=== PATIENT | male | born 1970 | race Hispanic/Latino ===

== ENCOUNTER 2018-04-06 18:47 | Emergency (ER) | payer BC ==
[2018-04-06 19:47] LABS: Basophils % (Auto) 0.5 % (0.0-1.8); Eosinophils % (Auto) 0.2 % (0.0-4.3); Lymphocytes # (Auto) 1.1 K/mm3 (1.2-5.4); Lymphocytes % (Auto) 18.1 % (13.4-35.0); Mean Corpuscular HGB Conc 36 % (32-34); Mean Corpuscular Hemoglobin 32 pg (28-32); Mean Corpuscular Volume 89 fl (84-94); Monocytes # (Auto) 0.4 K/mm3 (0.0-0.8); Monocytes % (Auto) 5.7 % (0.0-7.3); Platelet Count 216 K/mm3 (140-440); Red Blood Count 5.12 M/mm3 (3.65-5.03); Red Cell Distribution Width 13.3 % (13.2-15.2)
[2018-04-06 19:52] LABS: Bilirubin,Urine NEG (Negative); Blood,Urine SM (Negative); Color,Urine Yellow (Yellow); Mucus,Urine FEW /HPF
[2018-04-06 19:59] LABS: Hematocrit 47.1 % (35.5-45.6); Hemoglobin 16.6 gm/dl (11.8-15.2)
[2018-04-06 20:03] LABS: BUN/Creatinine Ratio 9; Blood Urea Nitrogen 7 mg/dL (9-20); Calcium 8.9 mg/dL (8.4-10.2); Hemolysis Index 5
[2018-04-06 20:15] LABS: Amphetamine Screen,Urine PRESUMPTIVE NEGATIVE; Benzodiazepines Screen,Urine PRESUMPTIVE NEGATIVE; Cannabinoid Screen,Urine PRESUMPTIVE NEGATIVE; Cocaine Screen,Urine PRESUMPTIVE NEGATIVE; Methadone Screen,Urine PRESUMPTIVE NEGATIVE; Opiate Screen,Urine PRESUMPTIVE NEGATIVE
[2018-04-06] MEDS ORDERED: ATIVAN IV PRN (20:37)
[2018-04-06] MEDS ORDERED: VITAMIN B-1 100 MG, FOLVITE 1 MG, INFUVITE 10 ML in NACL 0.9% 1000 ML 1,000 ML IV ONE (20:38)
[2018-04-06] MEDS ORDERED: NACL 0.9% 1000 ML 1,000 ML ONE (21:23)
--- NOTE | 2018-04-06 21:49 | Emergency Department Report ---
ED Alcohol HPI - General Chief Complaint: Medical Clearance Stated Complaint: MEDICAL CLEARANCE Time Seen by Provider: 04/06/18 20:36 Source: patient Mode of arrival: Ambulatory Limitations: No Limitations - History of Present Illness Initial Comments: 48-year-old male with a past medical history hypertension and alcohol abuse presents to the hospital requesting alcohol detox. Patient states he was accepted at [facility] [employer] [place] however, he was sent to the ER for medical clearance. Patient states he drinks about 12 pack of beer daily. Menstrual was this a.m. He does develop anxiety and tremors does not drink. Denies history of alcohol withdrawal seizures. No pain currently. - Related Data Allergies Allergy/AdvReac Type Severity Reaction Status Date / Time No Known Allergies Allergy Unverified 04/06/18 19:07 ED Review of Systems ROS: Stated complaint: MEDICAL CLEARANCE Other details as noted in HPI ED Past Medical Hx - Past Medical History Hx Hypertension: Yes Hx Psychiatric Treatment: Yes (alcohol abuse) - Surgical History Past Surgical History?: Yes Additional Surgical History: left femur fx - Social History Smoking Status: Never Smoker Substance Use Type: Alcohol ED Physical Exam - General Limitations: No Limitations ED Course Vital Signs 04/06/18 04/06/18 04/06/18 19:03 19:34 21:13 Temperature 99.3 F Pulse Rate 112 H 120 H 100 H Respiratory 16 16 21 Rate Blood Pressure 113/74 Blood Pressure 129/85 [Right] O2 Sat by Pulse 95 99 93 Oximetry 04/06/18 04/06/18 04/06/18 21:15 21:30 21:45 Temperature Pulse Rate 99 H 94 H 91 H Respiratory 18 19 21 Rate Blood Pressure 122/83 117/75 117/75 Blood Pressure [Right] O2 Sat by Pulse 94 92 93 Oximetry 04/06/18 04/06/18 04/06/18 22:00 22:15 22:30 Temperature Pulse Rate 93 H 97 H 102 H Respiratory 20 12 13 Rate Blood Pressure 120/75 120/75 119/75 Blood Pressure [Right] O2 Sat by Pulse 93 94 95 Oximetry 04/06/18 04/06/18 22:45 23:00 Temperature Pulse Rate 94 H 89 Respiratory 22 22 Rate Blood Pressure 119/75 114/70 Blood Pressure [Right] O2 Sat by Pulse 92 92 Oximetry - Consultations Consultation #1: 04/06/18 21:48 Mental health consultated. They contacted [facility] (formerly [facility] Patient does have a bed there however, he needs alcohol level less than 0.15 for medical clearance ED Medical Decision Making - Lab Data Result diagrams: 04/06/18 19:17 04/06/18 19:17 Lab Results 04/06/18 04/06/18 04/06/18 Range/Units 19:17 19:17 19:17 WBC (4.5-11.0) K/mm3 RBC (3.65-5.03) M/mm3 Hgb (11.8-15.2) gm/dl Hct (35.5-45.6) % MCV (84-94) fl MCH (28-32) pg MCHC (32-34) % RDW (13.2-15.2) % Plt Count (140-440) K/mm3 Lymph % (Auto) (13.4-35.0) % Upson % (Auto) (0.0-7.3) % Eos % (Auto) (0.0-4.3) % Baso % (Auto) (0.0-1.8) % Lymph # (1.2-5.4) K/mm3 Upson # (0.0-0.8) K/mm3 Eos # (0.0-0.4) K/mm3 Baso # (0.0-0.1) K/mm3 Seg Neutrophils % (40.0-70.0) % Seg Neutrophils # (1.8-7.7) K/mm3 Sodium 136 L (137-145) mmol/L Potassium 4.1 (3.6-5.0) mmol/L Chloride 95.1 L (98-107) mmol/L Carbon Dioxide 22 (22-30) mmol/L Anion Gap 23 mmol/L BUN 7 L (9-20) mg/dL Creatinine 0.8 (0.8-1.5) mg/dL Estimated GFR > 60 ml/min BUN/Creatinine Ratio 9 % Glucose 212 H (75-100) mg/dL Calcium 8.9 (8.4-10.2) mg/dL Magnesium (1.7-2.3) mg/dL Urine Color (Yellow) Urine Turbidity (Clear) Urine pH (5.0-7.0) Ur Specific [place] (1.003-1.030) Urine Protein (Negative) mg/dL Urine Glucose (UA) (Negative) mg/dL Urine Ketones (Negative) mg/dL Urine Blood (Negative) Urine Nitrite (Negative) Urine Bilirubin (Negative) Urine Urobilinogen (<2.0) mg/dL Ur Leukocyte Esterase (Negative) Urine WBC (Auto) (0.0-6.0) /HPF Urine RBC (Auto) (0.0-6.0) /HPF Urine Mucus /HPF Salicylates < 0.3 L (2.8-20.0) mg/dL Urine Opiates Screen Urine Methadone Screen Acetaminophen < 5.0 L (10.0-30.0) ug/mL Ur Barbiturates Screen Ur Phencyclidine Scrn Ur Amphetamines Screen U Benzodiazepines Scrn Urine Cocaine Screen U Marijuana (THC) Screen Drugs of Abuse Note Plasma/Serum Alcohol (0-0.07) % 04/06/18 04/06/18 04/06/18 Range/Units 19:17 19:17 21:41 WBC 6.3 (4.5-11.0) K/mm3 RBC 5.12 H (3.65-5.03) M/mm3 Hgb 16.6 H (11.8-15.2) gm/dl Hct 47.1 H (35.5-45.6) % MCV 89 (84-94) fl MCH 32 (28-32) pg MCHC 36 H (32-34) % RDW 13.3 (13.2-15.2) % Plt Count 216 (140-440) K/mm3 Lymph % (Auto) 18.1 (13.4-35.0) % Upson % (Auto) 5.7 (0.0-7.3) % Eos % (Auto) 0.2 (0.0-4.3) % Baso % (Auto) 0.5 (0.0-1.8) % Lymph # 1.1 L (1.2-5.4) K/mm3 Upson # 0.4 (0.0-0.8) K/mm3 Eos # 0.0 (0.0-0.4) K/mm3 Baso # 0.0 (0.0-0.1) K/mm3 Seg Neutrophils % 75.5 H (40.0-70.0) % Seg Neutrophils # 4.8 (1.8-7.7) K/mm3 Sodium (137-145) mmol/L Potassium (3.6-5.0) mmol/L Chloride (98-107) mmol/L Carbon Dioxide (22-30) mmol/L Anion Gap mmol/L BUN (9-20) mg/dL Creatinine (0.8-1.5) mg/dL Estimated GFR ml/min BUN/Creatinine Ratio % Glucose (75-100) mg/dL Calcium (8.4-10.2) mg/dL Magnesium 2.10 (1.7-2.3) mg/dL Urine Color (Yellow) Urine Turbidity (Clear) Urine pH (5.0-7.0) Ur Specific [place] (1.003-1.030) Urine Protein (Negative) mg/dL Urine Glucose (UA) (Negative) mg/dL Urine Ketones (Negative) mg/dL Urine Blood (Negative) Urine Nitrite (Negative) Urine Bilirubin (Negative) Urine Urobilinogen (<2.0) mg/dL Ur Leukocyte Esterase (Negative) Urine WBC (Auto) (0.0-6.0) /HPF Urine RBC (Auto) (0.0-6.0) /HPF Urine Mucus /HPF Salicylates (2.8-20.0) mg/dL Urine Opiates Screen Urine Methadone Screen Acetaminophen (10.0-30.0) ug/mL Ur Barbiturates Screen Ur Phencyclidine Scrn Ur Amphetamines Screen U Benzodiazepines Scrn Urine Cocaine Screen U Marijuana (THC) Screen Drugs of Abuse Note Plasma/Serum Alcohol 0.24 H (0-0.07) % 04/06/18 04/06/18 04/07/18 Range/Units Unknown Unknown 00:07 WBC (4.5-11.0) K/mm3 RBC (3.65-5.03) M/mm3 Hgb (11.8-15.2) gm/dl Hct (35.5-45.6) % MCV (84-94) fl MCH (28-32) pg MCHC (32-34) % RDW (13.2-15.2) % Plt Count (140-440) K/mm3 Lymph % (Auto) (13.4-35.0) % Upson % (Auto) (0.0-7.3) % Eos % (Auto) (0.0-4.3) % Baso % (Auto) (0.0-1.8) % Lymph # (1.2-5.4) K/mm3 [place] # (0.0-0.8) K/mm3 Eos # (0.0-0.4) K/mm3 Baso # (0.0-0.1) K/mm3 Seg Neutrophils % (40.0-70.0) % Seg Neutrophils # (1.8-7.7) K/mm3 Sodium (137-145) mmol/L Potassium (3.6-5.0) mmol/L Chloride (98-107) mmol/L Carbon Dioxide (22-30) mmol/L Anion Gap mmol/L BUN (9-20) mg/dL Creatinine (0.8-1.5) mg/dL Estimated GFR ml/min BUN/Creatinine Ratio % Glucose (75-100) mg/dL Calcium (8.4-10.2) mg/dL Magnesium (1.7-2.3) mg/dL Urine Color Yellow (Yellow) Urine Turbidity Clear (Clear) Urine pH 6.0 (5.0-7.0) Ur Specific [place] 1.009 (1.003-1.030) Urine Protein 30 mg/dl (Negative) mg/dL Urine Glucose (UA) Neg (Negative) mg/dL Urine Ketones Tr (Negative) mg/dL Urine Blood Sm (Negative) Urine Nitrite Neg (Negative) Urine Bilirubin Neg (Negative) Urine Urobilinogen 2.0 (<2.0) mg/dL Ur Leukocyte Esterase Neg (Negative) Urine WBC (Auto) 1.0 (0.0-6.0) /HPF Urine RBC (Auto) 3.0 (0.0-6.0) /HPF Urine Mucus Few /HPF Salicylates (2.8-20.0) mg/dL Urine Opiates Screen Presumptive negative Urine Methadone Screen Presumptive negative Acetaminophen (10.0-30.0) ug/mL Ur Barbiturates Screen Presumptive negative Ur Phencyclidine Scrn Presumptive negative Ur Amphetamines Screen Presumptive negative U Benzodiazepines Scrn Presumptive negative Urine Cocaine Screen Presumptive negative U Marijuana (THC) Screen Presumptive negative Drugs of Abuse Note Disclamer Plasma/Serum Alcohol 0.12 H (0-0.07) % - Medical Decision Making alcohol detox request etoh less than 0.15 prior to clearance hr improved with NS, banana bag, and ativan no tremors after treatment medically cleared for psychiatric transfer to [facility] - Differential Diagnosis alcohol detox, alcohol abuse, alcohol intoxication, electrolyte abnormaliti Critical Care Time: No Critical care attestation.: If time is entered above; I have spent that time in minutes in the direct care of this critically ill patient, excluding procedure time. ED Disposition Clinical Impression: Alcohol abuse, Alcohol dependence, Medical clearance for psychiatric admission Disposition: DC/TX-65 PSY HOSP/PSY UNIT Is pt being admited?: No Condition: Stable Time of Disposition: 00:52 (awaiting transfer)
[2018-04-06] MEDS: ATIVAN IV PRN (22:04)
[2018-04-06] MEDS ORDERED: NACL 0.9% 1000 ML 1,000 ML IV ONE (23:04)
[2018-04-07] MEDS: ATIVAN IV PRN (04:37)
[2018-04-07 04:42] VITALS: BP 150/93
== END 2018-04-07 05:00 ==
LOC: ED 18:47
DX: F10.229 Alcohol dependence with intoxication, unspecified (principal); Z04.6 Encounter for general psychiatric examination, requested by authority; I10 Essential (primary) hypertension
CPT/HCPCS: 36415; 80048; 80307; 81001; 83735; 85025; 96365; 96375; 99285; G0480; J2060; J3411; J7030; 80320

== ENCOUNTER 2019-02-01 14:56 | Emergency (ER) | payer BC ==
[2019-02-01 15:55] LABS: Basophils % (Auto) 0.4 % (0.0-1.8); Eosinophils % (Auto) 0.1 % (0.0-4.3); Lymphocytes % (Auto) 8.2 % (13.4-35.0); Mean Corpuscular HGB Conc 36 % (32-34); Mean Corpuscular Volume 87 fl (84-94); Monocytes # (Auto) 0.8 K/mm3 (0.0-0.8); Monocytes % (Auto) 6.4 % (0.0-7.3); Platelet Count 208 K/mm3 (140-440); Red Blood Count 5.79 M/mm3 (3.65-5.03); Red Cell Distribution Width 14.6 % (13.2-15.2)
[2019-02-01 16:01] LABS: Hematocrit 50.4 % (35.5-45.6); Hemoglobin 17.9 gm/dl (11.8-15.2)
[2019-02-01 16:22] LABS: Alanine Aminotransferase 38 units/L (7-56); BUN/Creatinine Ratio 11; Blood Urea Nitrogen 8 mg/dL (9-20); Calcium 9.3 mg/dL (8.4-10.2); Hemolysis Index 13
[2019-02-01] MEDS ORDERED: NACL 0.9% 1000 ML 1,000 ML IV ONE (16:38)
[2019-02-01] MEDS ORDERED: ZOFRAN IV ONE (16:38)
[2019-02-01] MEDS ORDERED: PEPCID IV ONE (16:38)
[2019-02-01] MEDS ORDERED: VALIUM IV ONE (17:00)
[2019-02-01] MEDS ORDERED: VITAMIN B-1 100 MG, FOLVITE 1 MG, INFUVITE 10 ML in NACL 0.9% 1000 ML 1,000 ML IV ONE (17:00)
[2019-02-01] MEDS ORDERED: ATIVAN PO ONE (20:04)
[2019-02-01 21:17] LABS: Amphetamine Screen,Urine PRESUMPTIVE NEGATIVE; Benzodiazepines Screen,Urine PRESUMPTIVE NEGATIVE; Cocaine Screen,Urine PRESUMPTIVE NEGATIVE; Methadone Screen,Urine PRESUMPTIVE NEGATIVE; Opiate Screen,Urine PRESUMPTIVE NEGATIVE
[2019-02-01 21:44] LABS: Cannabinoid Screen,Urine PRESUMPTIVE POSITIVE
--- NOTE | 2019-02-01 22:17 | Emergency Department Report ---
ED Psych HPI - General Chief Complaint: Alcohol Stated Complaint: ALCOHOL WITHDRAWAL Time Seen by Provider: 02/01/19 16:21 Source: patient, EMS Mode of arrival: Ambulatory - History of Present Illness Initial Comments: Patient is a 48-year-old male who is presenting with possible alcohol withdrawal. Patient states that his last drink was yesterday. Patient is drinking for last several days. The patient like help with alcohol. Patient states he does have some tremors and some mild nausea. He is not having any hallucinations vomiting fevers chills diarrhea chest pain or shortness of breath. - Related Data Home Medications Medication Instructions Recorded Confirmed Last Taken Metoprolol [Lopressor TAB] 50 mg PO BID 02/01/19 02/01/19 Unknown Allergies Allergy/AdvReac Type Severity Reaction Status Date / Time No Known Allergies Allergy Unverified 04/06/18 19:07 ED Review of Systems ROS: Stated complaint: ALCOHOL WITHDRAWAL Other details as noted in HPI Comment: All other systems reviewed and negative ED Past Medical Hx - Past Medical History Hx Hypertension: Yes Hx Psychiatric Treatment: Yes (alcohol abuse) - Surgical History Additional Surgical History: left femur fx - Social History Smoking Status: Unknown if ever smoked - Medications Home Medications: Home Medications Medication Instructions Recorded Confirmed Last Taken Type Metoprolol [Lopressor TAB] 50 mg PO BID 02/01/19 02/01/19 Unknown History ED Physical Exam - General Limitations: No Limitations General appearance: alert, in no apparent distress - Head Head exam: Present: atraumatic, normocephalic - Eye Eye exam: Present: normal appearance - ENT ENT exam: Present: mucous membranes moist - Neck Neck exam: Present: normal inspection - Respiratory Respiratory exam: Present: normal lung sounds bilaterally. Absent: respiratory distress, wheezes, rales, rhonchi - Cardiovascular Cardiovascular Exam: Present: regular rate, normal rhythm. Absent: systolic murmur, diastolic murmur, rubs, gallop - GI/Abdominal GI/Abdominal exam: Present: soft, normal bowel sounds. Absent: distended, tenderness, guarding, rebound, rigid - Rectal Rectal exam: Present: deferred - Extremities Exam Extremities exam: Present: normal inspection - Back Exam Back exam: Present: normal inspection - Neurological Exam Neurological exam: Present: alert, oriented X3 - Psychiatric Psychiatric exam: Present: normal affect, normal mood - Skin Skin exam: Present: warm, dry, intact, normal color. Absent: rash ED Course Vital Signs 02/01/19 02/01/19 02/01/19 15:11 15:23 15:30 Temperature 97.4 F L Pulse Rate 88 86 83 Respiratory 16 16 17 Rate Blood Pressure 150/102 136/98 O2 Sat by Pulse 98 95 96 Oximetry 02/01/19 02/01/19 02/01/19 16:00 16:04 16:30 Temperature Pulse Rate 83 Respiratory 14 18 Rate Blood Pressure 135/96 124/73 O2 Sat by Pulse 96 93 Oximetry 02/01/19 02/01/19 02/01/19 17:00 17:30 18:00 Temperature Pulse Rate 83 83 Respiratory 11 L 15 Rate Blood Pressure 148/97 143/81 150/100 O2 Sat by Pulse Oximetry 02/01/19 02/01/19 02/01/19 18:30 19:00 19:31 Temperature Pulse Rate 85 94 H 89 Respiratory 16 19 15 Rate Blood Pressure 162/102 158/127 173/105 O2 Sat by Pulse Oximetry 02/01/19 02/01/19 20:01 20:10 Temperature Pulse Rate 78 Respiratory 17 17 Rate Blood Pressure 147/82 O2 Sat by Pulse 93 Oximetry ED Medical Decision Making - Lab Data Result diagrams: 02/01/19 15:30 02/01/19 15:30 Lab Results 02/01/19 02/01/19 02/01/19 Range/Units 15:30 15:30 16:48 WBC 11.8 H (4.5-11.0) K/mm3 RBC 5.79 H (3.65-5.03) M/mm3 Hgb 17.9 H (11.8-15.2) gm/dl Hct 50.4 H (35.5-45.6) % MCV 87 (84-94) fl MCH 31 (28-32) pg MCHC 36 H (32-34) % RDW 14.6 (13.2-15.2) % Plt Count 208 (140-440) K/mm3 Lymph % (Auto) 8.2 L (13.4-35.0) % [place] % (Auto) 6.4 (0.0-7.3) % Eos % (Auto) 0.1 (0.0-4.3) % Baso % (Auto) 0.4 (0.0-1.8) % Lymph # 1.0 L (1.2-5.4) K/mm3 [place] # 0.8 (0.0-0.8) K/mm3 Eos # 0.0 (0.0-0.4) K/mm3 Baso # 0.0 (0.0-0.1) K/mm3 Seg Neutrophils % 84.9 H (40.0-70.0) % Seg Neutrophils # 10.0 H (1.8-7.7) K/mm3 Sodium 138 (137-145) mmol/L Potassium 4.3 (3.6-5.0) mmol/L Chloride 95.9 L (98-107) mmol/L Carbon Dioxide 19 L (22-30) mmol/L Anion Gap 27 mmol/L BUN 8 L (9-20) mg/dL Creatinine 0.7 L (0.8-1.5) mg/dL Estimated GFR > 60 ml/min BUN/Creatinine Ratio 11 % Glucose 106 H (75-100) mg/dL Calcium 9.3 (8.4-10.2) mg/dL Total Bilirubin 1.30 H (0.1-1.2) mg/dL AST 76 H (5-40) units/L ALT 38 (7-56) units/L Alkaline Phosphatase 75 (35-129) units/L Total Protein 8.4 H (6.3-8.2) g/dL Albumin 5.0 (3.9-5) g/dL Albumin/Globulin Ratio 1.5 % Urine Opiates Screen Urine Methadone Screen Ur Barbiturates Screen Ur Phencyclidine Scrn Ur Amphetamines Screen U Benzodiazepines Scrn Urine Cocaine Screen U Marijuana (THC) Screen Drugs of Abuse Note Plasma/Serum Alcohol 0.11 H (0-0.07) % 02/01/19 Range/Units 20:30 WBC (4.5-11.0) K/mm3 RBC (3.65-5.03) M/mm3 Hgb (11.8-15.2) gm/dl Hct (35.5-45.6) % MCV (84-94) fl MCH (28-32) pg MCHC (32-34) % RDW (13.2-15.2) % Plt Count (140-440) K/mm3 Lymph % (Auto) (13.4-35.0) % [place] % (Auto) (0.0-7.3) % Eos % (Auto) (0.0-4.3) % Baso % (Auto) (0.0-1.8) % Lymph # (1.2-5.4) K/mm3 [place] # (0.0-0.8) K/mm3 Eos # (0.0-0.4) K/mm3 Baso # (0.0-0.1) K/mm3 Seg Neutrophils % (40.0-70.0) % Seg Neutrophils # (1.8-7.7) K/mm3 Sodium (137-145) mmol/L Potassium (3.6-5.0) mmol/L Chloride (98-107) mmol/L Carbon Dioxide (22-30) mmol/L Anion Gap mmol/L BUN (9-20) mg/dL Creatinine (0.8-1.5) mg/dL Estimated GFR ml/min BUN/Creatinine Ratio % Glucose (75-100) mg/dL Calcium (8.4-10.2) mg/dL Total Bilirubin (0.1-1.2) mg/dL AST (5-40) units/L ALT (7-56) units/L Alkaline Phosphatase (35-129) units/L Total Protein (6.3-8.2) g/dL Albumin (3.9-5) g/dL Albumin/Globulin Ratio % Urine Opiates Screen Presumptive negative Urine Methadone Screen Presumptive negative Ur Barbiturates Screen Presumptive negative Ur Phencyclidine Scrn Presumptive negative Ur Amphetamines Screen Presumptive negative U Benzodiazepines Scrn Presumptive negative Urine Cocaine Screen Presumptive negative U Marijuana (THC) Screen Presumptive positive Drugs of Abuse Note Disclamer Plasma/Serum Alcohol (0-0.07) % - Medical Decision Making She was given medications for symptomatic relief. Patient likely did not have his last drink greater than 24 hours ago since he still has significant amount of alcohol in his system. Patient was seen by a mental health colleagues who are trying to arrange alcohol detox programs for the patient. Patient is medically cleared at this time. Critical care attestation.: If time is entered above; I have spent that time in minutes in the direct care of this critically ill patient, excluding procedure time. ED Disposition Clinical Impression: Alcohol abuse Disposition: DC/TX-65 PSY HOSP/PSY UNIT Is pt being admited?: No Does the pt Need Aspirin: No Condition: Stable Referrals: MONICA MARIA MD [Primary Care Provider] - 3-5 Days Time of Disposition: 22:17
[2019-02-02 12:07] VITALS: BP 137/85
== END 2019-02-02 12:07 | disposition home or self-care (01) ==
LOC: ED 14:56
DX: F10.120 Alcohol abuse with intoxication, uncomplicated (principal); I10 Essential (primary) hypertension
CPT/HCPCS: 36415; 80053; 80307; 85025; 93005; 93010; 96365; 96366; 96375; 99284; G0480; J2405; J3360; J3411; J7030; 80320

== ENCOUNTER 2019-11-26 00:44 | Emergency (ER) | payer BC ==
[2019-11-26] MEDS ORDERED: SODIUM CHLORIDE 0.9% 1000 ML 1,000 ML IV ONE (00:59)
[2019-11-26] MEDS ORDERED: THIAMINE 100 MG, FOLIC ACID 1 MG, MULTIPLE VITAMIN INJ, ADULT 10 ML in SODIUM CHLORIDE ... IV ONE (00:59)
--- NOTE | 2019-11-26 01:02 | Emergency Department Report ---
<JODIE DAVIS - Last Filed: 11/26/19 11:50> ED Alcohol HPI - General Chief Complaint: Alcohol Stated Complaint: ALCOHOL POISONING Time Seen by Provider: 11/26/19 00:59 - Related Data Home Medications Medication Instructions Recorded Confirmed Last Taken Metoprolol [Lopressor TAB] 50 mg PO BID 02/01/19 02/01/19 Unknown Previous Rx's Medication Instructions Recorded Last Taken Type Omeprazole 20 mg PO QDAY #30 capsule. 02/02/19 Unknown Rx Allergies Allergy/AdvReac Type Severity Reaction Status Date / Time No Known Allergies Allergy Unverified 04/06/18 19:07 ED Past Medical Hx - Medications Home Medications: Home Medications Medication Instructions Recorded Confirmed Last Taken Type Metoprolol [Lopressor TAB] 50 mg PO BID 02/01/19 02/01/19 Unknown History Omeprazole 20 mg PO QDAY #30 capsule. 02/02/19 Unknown Rx ED Course - Reevaluation(s) Reevaluation #2: 11/26/19 11:51 10am etoh level still hi. cannot assess patient until alcohol level is released .100. Pt did receive p.o. potassium 1 mg several hours ago for "anxiety". CIWA score was 7 at the time. Patient is on a CIWA protocol to monitor for withdrawal while waiting for sobriety. It is taking about 6 hours for patient to metabolize 0.1 of alcohol therefore repeat will be ordered for 4pm ED Medical Decision Making - Lab Data Result diagrams: 11/26/19 01:17 11/26/19 01:17 ED Disposition Clinical Impression: Desire for detoxification Acute alcohol intoxication Qualifiers: Complication of substance-induced condition: uncomplicated Qualified Code(s): F10.920 - Alcohol use, unspecified with intoxication, uncomplicated Disposition: DC/TX-70 ANOTHER TYPE HLTHCARE Condition: Stable Referrals: PRIMARY CARE, [Primary Care Provider] - 2-3 Days <LENORA LIN - Last Filed: 11/26/19 15:30> ED Medical Decision Making - Lab Data Result diagrams: 11/26/19 01:17 11/26/19 01:17 - Medical Decision Making I have placed patient on involuntary hold using 2013 form. His alcohol use has become incapacitating. He has been accepted to [facility] for inpatient rehabilitation. <NEYMAR NEW III - Last Filed: 11/26/19 22:28> ED Alcohol HPI - General Source: family Mode of arrival: Ambulatory Limitations: No Limitations - History of Present Illness Initial Comments: Patient is a 49-year-old male that presents emergency room with complaints of alcoholism and wanting rehab. Patient states that he has been drinking for the past 2 weeks. Patient states he drinks too much. Patient states his last check was 30 minutes prior to arrival. Patient denies seizures. Patient denies shaking. Patient denies anxiety at this time. Patient states he wants to go to rehab and he will go directly from the ER if we can get that set up. MD Complaint: alcohol intoxication, alcohol dependence, desires rehab Last Drink: just GENERAL MANAGER Time Since Last Drink: 30 -: minute(s) Chronic Alcohol Use: Yes Previous Visits for Alcohol Intoxication?: Yes Recent Trauma: No Associated Symptoms: denies other symptoms Treatments Prior to Arrival: none ED Review of Systems ROS: Stated complaint: ALCOHOL POISONING Other details as noted in HPI Constitutional: denies: chills, fever Eyes: denies: eye pain, eye discharge, vision change ENT: denies: ear pain, throat pain Respiratory: denies: cough, shortness of breath, wheezing Cardiovascular: denies: chest pain, palpitations Endocrine: no symptoms reported Gastrointestinal: denies: abdominal pain, nausea, diarrhea Genitourinary: denies: urgency, dysuria Musculoskeletal: denies: back pain, joint swelling, arthralgia Skin: denies: rash, lesions Neurological: denies: headache, weakness, paresthesias Psychiatric: denies: anxiety, depression Hematological/Lymphatic: denies: easy bleeding, easy bruising ED Past Medical Hx - Past Medical History Previous Medical History?: Yes Hx Hypertension: Yes Hx Psychiatric Treatment: Yes (alcohol abuse) - Surgical History Past Surgical History?: Yes Additional Surgical History: left femur fx - Family History Family history: no significant - Social History Smoking Status: Never Smoker Substance Use Type: Alcohol ED Physical Exam - General Limitations: No Limitations General appearance: alert, in no apparent distress - Head Head exam: Present: atraumatic, normocephalic - Eye Eye exam: Present: normal appearance - ENT ENT exam: Present: mucous membranes moist - Neck Neck exam: Present: normal inspection - Respiratory Respiratory exam: Present: normal lung sounds bilaterally. Absent: respiratory distress - Cardiovascular Cardiovascular Exam: Present: regular rate, normal rhythm. Absent: systolic murmur, diastolic murmur, rubs, gallop - GI/Abdominal GI/Abdominal exam: Present: soft, normal bowel sounds - Rectal Rectal exam: Present: deferred - Extremities Exam Extremities exam: Present: normal inspection - Back Exam Back exam: Present: normal inspection - Neurological Exam Neurological exam: Present: alert, oriented X3 - Psychiatric Psychiatric exam: Present: normal affect, normal mood - Skin Skin exam: Present: warm, dry, intact, normal color. Absent: rash ED Course Vital Signs 11/26/19 11/26/19 11/26/19 00:47 07:35 08:00 Temperature 987.1 F H 97.9 F Pulse Rate 114 H 93 H Respiratory 18 16 16 Rate Blood Pressure 143/107 Blood Pressure 147/92 [Right] O2 Sat by Pulse 94 95 95 Oximetry 11/26/19 11/26/19 11/26/19 08:30 08:48 09:00 Temperature Pulse Rate 77 98 H 83 Respiratory 12 16 22 Rate Blood Pressure 147/92 137/83 Blood Pressure 137/83 [Right] O2 Sat by Pulse 93 95 96 Oximetry 11/26/19 11/26/19 11/26/19 09:16 09:30 09:46 Temperature Pulse Rate 79 73 75 Respiratory 14 12 14 Rate Blood Pressure 137/83 153/99 153/99 Blood Pressure [Right] O2 Sat by Pulse 92 93 95 Oximetry 11/26/19 11/26/19 11/26/19 10:00 10:16 10:30 Temperature Pulse Rate 75 107 H 75 Respiratory 10 L 17 13 Rate Blood Pressure 134/77 134/77 143/94 Blood Pressure [Right] O2 Sat by Pulse 93 96 90 Oximetry 11/26/19 11/26/19 11/26/19 10:46 11:00 11:16 Temperature Pulse Rate 83 74 78 Respiratory 14 12 13 Rate Blood Pressure 143/94 150/94 150/94 Blood Pressure [Right] O2 Sat by Pulse 95 96 97 Oximetry 11/26/19 11/26/19 11/26/19 11:30 11:46 12:00 Temperature Pulse Rate 83 73 74 Respiratory 13 14 15 Rate Blood Pressure 145/108 145/108 137/103 Blood Pressure [Right] O2 Sat by Pulse 95 98 96 Oximetry 11/26/19 11/26/19 11/26/19 12:30 13:00 13:30 Temperature Pulse Rate 76 81 77 Respiratory 15 12 13 Rate Blood Pressure 147/96 143/82 151/86 Blood Pressure [Right] O2 Sat by Pulse 95 96 98 Oximetry 11/26/19 11/26/19 11/26/19 14:00 14:30 15:00 Temperature Pulse Rate 111 H 77 85 Respiratory 17 15 12 Rate Blood Pressure 145/93 160/86 160/86 Blood Pressure [Right] O2 Sat by Pulse 97 100 94 Oximetry 11/26/19 16:00 Temperature Pulse Rate Respiratory Rate Blood Pressure 145/98 Blood Pressure [Right] O2 Sat by Pulse 90 Oximetry - Reevaluation(s) Reevaluation #1: I discussed all results and clinical findings with patient. I discussed plan of care with patient. Patient agrees with plan of care. Patient will remain in the ER until he is medically and clinically sober. Patient states he wants to have detox. A mental health evaluation has been placed for possible placement to detox. 11/26/19 05:12 ED Medical Decision Making - Lab Data Result diagrams: 11/26/19 01:17 11/26/19 01:17 - Medical Decision Making Patient is a 49-year-old male that presents emergency room with acute alcohol intoxication and desiring detox. Patient had a medical clearance done. Patient's labs are unremarkable except for elevated alcohol level. Patient will remain in the ER until he is clinically and legally sober or accepted to a rehab facility. Patient was signed out at 0 600 to the oncoming physician, Dr. Davis. - Differential Diagnosis Alcohol intoxication, alcohol abuse, desire detox. Critical care attestation.: If time is entered above; I have spent that time in minutes in the direct care of this critically ill patient, excluding procedure time. ED Disposition Is pt being admited?: No Does the pt Need Aspirin: No Time of Disposition: 22:28
[2019-11-26 01:35] LABS: Basophils % (Auto) 0.8 % (0.0-1.8); Eosinophils % (Auto) 0.4 % (0.0-4.3); Hematocrit 47.4 % (35.5-45.6); Hemoglobin 16.4 gm/dl (11.8-15.2); Lymphocytes % (Auto) 30.2 % (13.4-35.0); Mean Corpuscular HGB Conc 35 % (32-34); Mean Corpuscular Volume 92 fl (84-94); Monocytes # (Auto) 0.5 K/mm3 (0.0-0.8); Monocytes % (Auto) 15.1 % (0.0-7.3); Platelet Count 139 K/mm3 (140-440); Red Blood Count 5.16 M/mm3 (3.65-5.03)
[2019-11-26 01:58] LABS: Alanine Aminotransferase 197 units/L (7-56); Albumin 4.7 g/dL (3.9-5); BUN/Creatinine Ratio 9; Blood Urea Nitrogen 6 mg/dL (9-20); Calcium 8.8 mg/dL (8.4-10.2); Hemolysis Index 9
[2019-11-26 03:48] LABS: Bilirubin,Urine NEG (Negative); Blood,Urine NEG (Negative); Color,Urine Straw (Yellow); Protein,Urine <15 mg/dL mg/dL (Negative); Urobilinogen,Urine < 2.0 mg/dL (<2.0); WBC,Urine < 1.0 /HPF (0.0-6.0)
[2019-11-26 03:56] LABS: Amphetamine Screen,Urine PRESUMPTIVE NEGATIVE; Benzodiazepines Screen,Urine PRESUMPTIVE NEGATIVE; Cocaine Screen,Urine PRESUMPTIVE NEGATIVE; Methadone Screen,Urine PRESUMPTIVE NEGATIVE; Opiate Screen,Urine PRESUMPTIVE NEGATIVE
[2019-11-26 04:31] LABS: Cannabinoid Screen,Urine PRESUMPTIVE POSITIVE
[2019-11-26] MEDS ORDERED: LORazepam 2 MG TAB PO PRN (08:42)
[2019-11-26] MEDS ORDERED: LORazepam 1 MG TAB PO ONE (08:52)
[2019-11-26] MEDS: LORazepam 2 MG TAB PO PRN ×2 (15:20→18:50)
[2019-11-26 16:48] VITALS: BP 145/98
== END 2019-11-26 19:00 | disposition other institution (70) ==
LOC: EEVIPCON 00:44 → ED 00:44
DX: F10.920 Alcohol use, unspecified with intoxication, uncomplicated (principal); Z79.899 Other long term (current) drug therapy
CPT/HCPCS: 36415; 80053; 80307; 81001; 85025; 96365; 99285; J3411; J7030; 80320; G0480